=== PATIENT | male | born 1950 | race Caucasian/White ===

== ENCOUNTER 2017-02-09 15:16 | Observation (INO) | payer BC ==
[~2017-02-09] VITALS: Ht 439.4 cm; Wt 118.8 kg
[~2017-02-09 15:16] MED LIST: ATORVASTATIN CA20 MG PO; AUGMENTIN875 MG PO; BENICAR HCT 201 EACH PO; CARTIA XT240 MG PO; HYZAAR 50-121 TABLET PO; LITE COAT ASPI325 M1 PO; NASAL SPRAY BOTH NARES; PERCOCET 5/31 TABLET PO
[2017-02-09 16:05] LABS: HEMATOCRIT 45.7 % (38.0-50.0); MCH 30.7 PG (29.0-34.0); MCHC 34.4 G/DL (30.0-36.0); MCV 89.3 FL (86-99); MEAN PLAT.VOLUME 9.3 uM^3 (9.0-12.4); PLATELET COUNT 312 K/uL (156-360); RBC DIS.WIDTH-CV 12.1 % (11.8-14.6); RBC DIS.WIDTH-SD 39.8 % (39-53); RED BLOOD COUNT 5.12 M/uL (4.00-5.50); WHITE BLOOD COUNT 17.3 K/uL (4.1-10.2)
[2017-02-09 16:15] LABS: CHLORIDE 103 mEq/L (99-109); POTASSIUM 3.7 mEq/L (3.7-5.4); SODIUM 137 mEq/L (136-147)
[2017-02-09 16:17] LABS: GLUCOSE 106 mg/dL (70-99)
[2017-02-09 16:18] LABS: ANION GAP 12 MEQ/L (2-14)
[2017-02-09 16:20] LABS: GFR ESTIMATE (CALCULATED) > 59 mL/min/
[2017-02-09 16:21] LABS: UREA NITROGEN (BUN) 13 mg/dL (9-23)
[2017-02-09 16:26] LABS: TROP-I INTERPRETATION NEGATIVE; TROPONIN-I < 0.01 ng/mL (0.0-0.30)
[2017-02-09] MEDS ORDERED: PROAIR HFA8.5 GM IH (19:40)
[2017-02-09] MEDS ORDERED: FLONASE16 G1 BOTH NARES (19:40)
[2017-02-09] MEDS ORDERED: BENZONATATE200 MG PO (19:41)
[2017-02-09] MEDS ORDERED: PROBIO 5 PO (19:43)
[2017-02-09] MEDS ORDERED: BIO CLEANSE PO (19:44)
[2017-02-09] MEDS ORDERED: COMPLETE OMEGA1 EACH PO (19:45)
[2017-02-09] MEDS ORDERED: DAILY VITE1 EAC1 PO (19:46)
[2017-02-09 23:03] VITALS: BP 137/82
[2017-02-09 23:48] LABS: TROP-I INTERPRETATION NEGATIVE; TROPONIN-I < 0.01 ng/mL (0.0-0.30)
[2017-02-10 00:42] LABS: INFLUENZA A VIRAL ANTIGEN NEGATIVE; INFLUENZA B VIRAL ANTIGEN NEGATIVE
[2017-02-10 03:55] VITALS: BP 129/75
[2017-02-10 05:28] LABS: TROP-I INTERPRETATION NEGATIVE; TROPONIN-I < 0.01 ng/mL (0.0-0.30)
[2017-02-10 08:49] VITALS: BP 130/78
[2017-02-10 11:21] VITALS: BP 105/77
[2017-02-10] MEDS ORDERED: AZITHROMYCIN250 MG PO (12:16)
== END 2017-02-10 13:23 | disposition home or self-care (01) ==
LOC: EME → EDBD 15:16 → EDOF 21:55 → 5WEST 22:48
PROVIDERS: Emergency Medicine; Family Medicine
DX: R07.89 Other chest pain (principal); J84.10 Pulmonary fibrosis, unspecified; I48.0 Paroxysmal atrial fibrillation; I10 Essential (primary) hypertension; E78.5 Hyperlipidemia, unspecified; D72.829 Elevated white blood cell count, unspecified; F41.9 Anxiety disorder, unspecified; E66.9 Obesity, unspecified; Z68.36 Body mass index [BMI] 36.0-36.9, adult
CPT/HCPCS: 71020; 80048; 84484; 85027; 87502; 93005; 99202; 99281; 99285; G0378; J1650; J7030